=== PATIENT | male | born 1955 | race Hispanic/Latino ===

== ENCOUNTER 2024-04-15 05:46 | Day surgery (SDC) | payer MEDICARE ==
[2024-04-15] VITALS (10 sets, daily range): BP systolic 107–135; BP diastolic 62–79; PULSE 60–71; RESP 16–18; TEMP 97.2–97.6
[~2024-04-15] VITALS: Ht 165.1 cm; Wt 74.8 kg
[2024-04-15] MEDS ORDERED: TRAZ-185 PO (06:28)
[2024-04-15] MEDS ORDERED: TAMS-1 PO (06:28)
[2024-04-15] MEDS ORDERED: EMPA10TA PO (06:28)
[2024-04-15] MEDS ORDERED: LISI20TA24 PO (06:28)
[2024-04-15] MEDS ORDERED: METF-444 PO (06:28)
[2024-04-15] MEDS ORDERED: ROSUVASTATIN PO (06:28)
[2024-04-15] MEDS ORDERED: FINA5TAB41 PO (06:28)
[2024-04-15] MEDS: 0.9%NACL 1000ML 1,000 ML IV ONE (06:40)
[2024-04-15] MEDS ORDERED: proPOFol 10 MG/ML 20ML VIAL IV ONE (07:34)
[2024-04-15] MEDS ORDERED: LIDOCAINE HCL 1% 20 ML VIAL ONE (07:35)
--- NOTE | 2024-04-15 08:45 | NUR ---
Full and complete Discharge Instructions given to Patient and Family both verbally and in writing.. All questions answered.Voiced understanding to GI procedure precautions and Follow Up. Voiced agreement to repeat Colonoscopy tomorrow. RX given. PIV removed with catheter tip intact. Denies c/o pain or discomfort. W/C to POV with Family to home.
== END 2024-04-15 08:48 | disposition home or self-care (01) ==
LOC: DAH 05:46
PROVIDERS: ATTEND Internal Medicine Gastroenterology
DX: Z12.11 Encounter for screening for malignant neoplasm of colon (principal); K62.1 Rectal polyp; I10 Essential (primary) hypertension; E11.9 Type 2 diabetes mellitus without complications; G47.00 Insomnia, unspecified; E78.00 Pure hypercholesterolemia, unspecified; Z90.49 Acquired absence of other specified parts of digestive tract; Z79.899 Other long term (current) drug therapy
CPT/HCPCS: 82948 ×2; 45380; 45385; J7030 ×2; J2704; A4620; A4215; A4223; A7002; A4222; A4221; A4663; A4606; J3490

== ENCOUNTER 2024-04-16 07:33 | Day surgery (SDC) | payer MEDICARE ==
[2024-04-16] VITALS (11 sets, daily range): BP systolic 110–145; BP diastolic 61–78; PULSE 64–78; RESP 15–18; TEMP 97.1–97.6
[~2024-04-16] VITALS: Ht 180.3 cm; Wt 79.8 kg
[~2024-04-16 07:33] MED LIST: EMPA10TA PO; FINA5TAB41 PO; LISI20TA24 PO; METF-444 PO; ROSUVASTATIN PO; TAMS-1 PO; TRAZ-185 PO
[2024-04-16] MEDS ORDERED: proPOFol 10 MG/ML 20ML VIAL IV ONE ×2 (07:47)
[2024-04-16] MEDS: 0.9%NACL 1000ML 1,000 ML IV ONE (08:11)
--- NOTE | 2024-04-16 10:36 | NUR ---
Full and complete Discharge Instructions given to Patient and Family both verbally and in writing. Fully interpreted in Polish and Khmer. All questions answered.Voiced understanding to GI procedure precautions and Follow Up. PIV removed with catheter tip intact. Denies c/o pain or discomfort. W/C to POV with Family to home.
== END 2024-04-16 10:35 | disposition home or self-care (01) ==
LOC: ENDO 07:33 → DAH 07:33 → ENDO 10:35
PROVIDERS: ATTEND Internal Medicine Gastroenterology
DX: Z12.11 Encounter for screening for malignant neoplasm of colon (principal); D12.2 Benign neoplasm of ascending colon; K57.30 Diverticulosis of large intestine without perforation or abscess without bleeding; K63.3 Ulcer of intestine; I10 Essential (primary) hypertension; E11.9 Type 2 diabetes mellitus without complications; E78.00 Pure hypercholesterolemia, unspecified; G47.00 Insomnia, unspecified; Z90.49 Acquired absence of other specified parts of digestive tract; Z79.899 Other long term (current) drug therapy
CPT/HCPCS: 82948 ×2; 45380; 45385; J7030 ×2; J2704 ×2; A4620; A4215 ×2; A4223; A4657; A7002; A4222; A4221; A4663; A4606; J3490